=== PATIENT | male | born 1960 | race Two or more races ===

== ENCOUNTER 2018-09-17 16:01 | Emergency (ER) | payer MEDICAID ==
[~2018-09-17] VITALS: Ht 172.7 cm; Wt 45.4 kg
--- NOTE | 2018-09-17 16:18 | NUR ---
PT BIBA RA 89 "From home complaining of abdominal pain. Psych inappropriate, PT IS AAOX1, NOT IN RESPIRATORY DISTRESS, V/S STABLE, KEPT RESTED AND COMFORTABLE.
--- NOTE | 2018-09-17 17:29 | NUR ---
URINAL GIVEN BUT UNABLE TO PROVIDE URINE SPECIMEN.
--- NOTE | 2018-09-17 17:34 | NUR ---
ER PHLEB AT BEDSIDE FOR BLOOD DRAW.
[2018-09-17 17:44] LABS: BASOPHILS % (AUTO) 0.3 % (0.0-2.0); EOSINOPHILS % (AUTO) 0.4 % (0.0-6.0); HEMATOCRIT 42 % (39-51); HEMOGLOBIN 14.1 g/dL (13.5-17.5); LYMPHOCYTES # (AUTO) 1.6 /CMM (0.8-4.8); LYMPHOCYTES % (AUTO) 8.6 % (20.0-44.0); MEAN CORPUSCULAR HGB CONC 34 g/dl (31.0-36.0); MEAN CORPUSCULAR VOLUME 96 fL (80-96); MONOCYTES # (AUTO) 1.2 /CMM (0.1-1.30); MONOCYTES % (AUTO) 6.4 % (2.0-12.0); NEUTROPHILS # (AUTO) 15.6 /CMM (1.8-8.9); NEUTROPHILS % (AUTO) 84.3 % (43.0-81.0); PLATELET COUNT (AUTO) 343 /CMM (150-450); RED BLOOD CELL COUNT(AUTO) 4.38 MIL/uL (4.5-6.0); WHITE BLOOD COUNT (AUTO) 18.5 K/uL (4.3-11.0)
[2018-09-17 17:53] LABS: CALCIUM, SERUM 9.1 mg/dL (8.5-10.1); CARBON DIOXIDE 27 mmol/L (21-32); CHLORIDE 101 mmol/L (98-107); GLUCOSE 108 mg/dL (74-106); POTASSIUM 3.8 mmol/L (3.5-5.1); SODIUM SERUM 138 mmol/L (136-145); UREA NITROGEN, BLOOD 20 mg/dL (7-18)
[2018-09-17 18:06] LABS: ALANINE AMINOTRANSFERASE 49 U/L (12-78); ALBUMIN 3.9 g/dL (3.4-5.0); ALCOHOL, BLOOD < 3 mg/dL (0-0); ALKALINE PHOSPHATASE 151 U/L (46-116); ASPARTATE AMINOTRANSFERASE 37 U/L (15-37); BILIRUBIN,DIRECT 0.2 mg/dL (0.0-0.2); BILIRUBIN,TOTAL 0.7 mg/dL (0.2-1.0); SALICYLATE 8.7 mg/dL (2.8-20.0); TOTAL PROTEIN, SERUM 7.7 g/dL (6.4-8.2)
[2018-09-17 18:07] LABS: ACETAMINOPHEN 0 ug/ml (10-30)
--- NOTE | 2018-09-17 18:15 | NUR ---
PT IS WHEELED TO CT SCAN VIA [facility].
[2018-09-17 19:04] LABS: APPEARANCE,URINE Clear (CLEAR); BILIRUBIN,URINE Negative (NEGATIVE); BLOOD, URINE Negative Ery/uL (NEGATIVE); COLOR,URINE Yellow (YELLOW); KETONES,URINE 15 (NEGATIVE); LEUKOCYTE ESTERASE ,URINE Negative (NEGATIVE); NITRITE, URINE Negative (NEGATIVE); PH,URINE 6.5 (5.0-8.0); PROTEIN,URINE 30 mg/dl (NEGATIVE); UGLUCOSE Negative (NEGATIVE); UROBILINOGEN,URINE 0.2 EU/dL (0.2)
[2018-09-17 19:45] LABS: RBC,URINE 0-2 /HPF (0-2)
[2018-09-17 19:46] LABS: BACTERIA,URINE None seen /HPF (None Seen); MUCUS,URINE Few /LPF (None Seen); SQUAMOUS EPITHELIAL CELL,UR Rare /HPF (None Seen)
[2018-09-17] MEDS ORDERED: OLANZAPINE 10 MG VIAL IM ONE ×4 (19:46→21:05)
--- NOTE | 2018-09-17 20:12 | NUR ---
PINKY ETA 1 HR
--- NOTE | 2018-09-17 20:45 | NUR ---
PINKY, BUSINESS DEVELOPMENT EXECUTIVE AT THE BED SIDE FR CAIT TOVAR.
--- NOTE | 2018-09-17 21:54 | NUR ---
Derrick metcalf in [facility] - 09/17/18 at 2155 by PRIYANKA APPAREL PATTERN MAKER AT THE BED SIDE FOE BLOOD DRAW
[2018-09-17] MEDS ORDERED: IV NS 0.9% 1,000 ML BAG IV ONE (22:30)
--- NOTE | 2018-09-17 22:39 | NUR ---
2O G PIV LINE WAS STARTED ON LFA WITH GOOD BLOOD DRAW. IV NS RUNNING
--- NOTE | 2018-09-17 23:56 | NUR ---
Patient is resting comfortably in bed with eyes closed. Easily aroused.
[2018-09-18] MEDS ORDERED: IV NS 0.9% 1,000 ML BAG IV ONE
[2018-09-18 00:04] LABS: BASOPHILS # (AUTO) 0.1 /CMM (0.0-0.2); BASOPHILS % (AUTO) 0.7 % (0.0-2.0); EOSINOPHILS % (AUTO) 0.7 % (0.0-6.0); HEMATOCRIT 37 % (39-51); HEMOGLOBIN 12.6 g/dL (13.5-17.5); LYMPHOCYTES # (AUTO) 1.8 /CMM (0.8-4.8); LYMPHOCYTES % (AUTO) 12.4 % (20.0-44.0); MEAN CORPUSCULAR HGB CONC 34 g/dl (31.0-36.0); MEAN CORPUSCULAR VOLUME 97 fL (80-96); MONOCYTES # (AUTO) 1.1 /CMM (0.1-1.30); MONOCYTES % (AUTO) 7.8 % (2.0-12.0); NEUTROPHILS # (AUTO) 11.6 /CMM (1.8-8.9); NEUTROPHILS % (AUTO) 78.4 % (43.0-81.0); PLATELET COUNT (AUTO) 299 /CMM (150-450); RED BLOOD CELL COUNT(AUTO) 3.87 MIL/uL (4.5-6.0); WHITE BLOOD COUNT (AUTO) 14.7 K/uL (4.3-11.0)
--- NOTE | 2018-09-18 01:22 | NUR ---
Patient is resting comfortably in bed with eyes closed. Easily aroused. VSS.
--- NOTE | 2018-09-18 08:03 | NUR ---
PT ASLEEP ON BED COMFORTABLY, EASILY AROUSABLE, WILL CONTINUE TO MONITOR.
--- NOTE | 2018-09-18 09:16 | NUR ---
FOYARED TRAY PROVIDED.
--- NOTE | 2018-09-18 11:30 | NUR ---
RENE LÓPEZ CRISIS TEAM AT BEDSIDE FOR EVAL.
--- NOTE | 2018-09-18 12:09 | NUR ---
CALLED SUP FOR TAXI VOUCHER
[2018-09-18 12:29] VITALS: BP 118/74
--- NOTE | 2018-09-18 12:29 | NUR ---
PT GIVEN A TAXI VOUCHER, Patient discharged to home in stable condition. Written and verbal after care instructions given. Patient verbalizes understanding of instruction. IV removed. Catheter intact and site benign. Pressure and 4x4 applied to site. No bleeding noted.
== END 2018-09-18 12:32 | disposition home or self-care (01) ==
LOC: ER 16:01
DX: F29 Unspecified psychosis not due to a substance or known physiological condition (principal); K40.90 Unilateral inguinal hernia, without obstruction or gangrene, not specified as recurrent; D72.829 Elevated white blood cell count, unspecified; F12.90 Cannabis use, unspecified, uncomplicated
CPT/HCPCS: 36415; 74176; 80048; 80076; 80305; 80307; 80329; 81001; 83690; 85025 ×2; 96372 ×2; 99284; G0480; J3490 ×2; J7030 ×2; 81000-TC